=== PATIENT | male | born 1960 ===

== ENCOUNTER 2021-06-11 06:04 | Day surgery (SDC) | payer OTHER ==
[2021-06-06 10:19] LABS: Absolute Lymphocytes (CBC) 1.1 K/uL (0.7-4.9); Basophils % 0.6 % (0-1.3); Hematocrit 43.1 % (39.6-49.0); Lymphocytes % 29.4 % (15.3-44.8); MPV 7.8 fL (7.6-11.3); RBC Red Blood Cell Count 5.07 M/uL (4.33-5.43)
--- NOTE | 2021-06-06 10:27 | RAD REPORT ---
EXAM DESCRIPTION: RAD - Chest Pa And Lat (2 Views) - 06/06/2021 10:05 am CLINICAL HISTORY: preop, patient pending left shoulder surgery. COMPARISON: None TECHNIQUE: Frontal and lateral views of the chest were obtained. FINDINGS: The lungs are clear of an acute infiltrate. No failure or volume overload. In the lower le ft lung field a day rounded nodular density is present possibly nipple shadow. Likelihood of a signif icant lung parenchymal mass is felt to be low. No other mass or nodule identifiable. Trachea is midline. Heart size is normal and central vasculature is within normal limits. No pleur al effusion or pneumothorax seen. No acute bony finding noted. No aortic abnormality. IMPRESSION: No failure, infiltrate or emergent CT chest finding. Vague nodular density lower left lung field may be a nipple shadow. Long-term significance is doubtfu l. However, follow-up PA chest film with and without a nipple marker would be suggested. This could b e performed prior to or following the surgery.
[2021-06-06 11:00] LABS: Potassium 4.5 mmol/L (3.5-5.1)
[2021-06-11] MEDS ORDERED: CEFAZOLIN/SWI 1gm 1 GM/10 ML SYR ONE (06:44)
[2021-06-11] MEDS ORDERED: Ringers Lactate 1,000 ML IV ONE ×2 (06:44→09:09)
[2021-06-11] MEDS ORDERED: propofoL 200 MG/20 ML VIAL IV ONE (06:48)
[2021-06-11] MEDS ORDERED: MIDAZOLAM HCL 2 MG/2 ML INJ ONE (06:48)
[2021-06-11] MEDS ORDERED: FENTANYL CITR 100 MCG/2 ML ONE (06:48)
[2021-06-11] MEDS ORDERED: LIDOCAINE 2% MPF 5 ML VIAL ONE (06:48)
[2021-06-11] MEDS ORDERED: ROCURONIUM 50 MG/5 ML VIAL IV ONE (06:48)
[2021-06-11] MEDS ORDERED: ROPLVACAINE HCL 20 ML ONE (06:58)
[2021-06-11] MEDS ORDERED: dexAMETHasone 4 MG/ML VIAL ONE (06:58)
[2021-06-11] MEDS ORDERED: EPINEPHRINE/PF 1 MG/ML AMP ONE (07:29)
[2021-06-11] MEDS ORDERED: TRIAMCINOLONE ACETON 40 MG/ML VIAL ONE ×2 (08:07→08:09)
[2021-06-11] MEDS ORDERED: BUPIVACAINE 0.25% PF 30 ML VIAL ONE (08:07)
[2021-06-11] MEDS ORDERED: GLYCOPYRROLATE 0.2 MG/ML SYR ONE (08:30)
[2021-06-11] MEDS ORDERED: EPHEDRINE SULF 50 MG/ML VIAL ONE (08:38)
[2021-06-11] MEDS ORDERED: KETOROLAC 30 MG/ML INJ ONE (09:32)
--- NOTE | 2021-06-11 09:38 | P.BOP ---
Preoperative diagnosis: left shoulder adhesive capsulitis Postoperative diagnosis: same, left shoulder osteoarthritis Primary procedure: left shoulder manipulation under anesthesia Secondary procedure: left shoulder arthroscopic lysis of adhesions Blast Furnace Checker: NONE,NONE Estimated blood loss: 5 mm Specimen: none Findings: see dictation Anesthesia: General Complications: None Implants: none Fluids & blood products: per anesthesia record Transferred to: Recovery Room Condition: Good
[2021-06-11 09:49] VITALS: O2SAT 100
--- NOTE | 2021-06-11 10:36 | RAD REPORT ---
EXAM DESCRIPTION: RAD - Chest Single View - 06/11/2021 10:01 am CLINICAL HISTORY: s/p (L) shoulder arthroscopic lysis of adhesions Chest pain. COMPARISON: Chest Pa And Lat (2 Views) dated 06/06/2021 FINDINGS: Portable technique limits examination quality. The lungs are grossly clear. The heart is normal in size. No displaced fractures. IMPRESSION: No acute intrathoracic process suspected.
[2021-06-11 10:51] VITALS: BP 137/67; TEMP 97.1
--- NOTE | 2021-06-11 11:00 | RAD REPORT ---
EXAM DESCRIPTION: RAD - Shoulder 1 View - 06/11/2021 10:01 am CLINICAL HISTORY: s/p L shoulder arthroscopic lysis of adhesions COMPARISON: No comparisons FINDINGS: A single frontal projection was submitted. No bone or joint abnormality is detected. No un expected postsurgical finding.
--- NOTE | 2021-06-14 08:31 | OP ---
Date of Procedure: 06/11/2021 Surgeon: Giovanni Jennings MD Preoperative Diagnosis: Left shoulder adhesive capsulitis. Postoperative Diagnoses: 1.Left shoulder adhesive capsulitis. 2.Left shoulder glenohumeral arthritis. Procedures Performed: 1.Left shoulder manipulation under anesthesia. 2.Left shoulder arthroscopic lysis of adhesions. Anesthesia: General endotracheal. Fluids: Per Anesthesia record. Estimated Blood Loss: 5 cc. Complications: None. Implants: None. Indication For Procedure: Chaitanya is a 60-year-old male presented to my clinic with signs and symptoms consistent with adhesive capsulitis, who proceeded with conservative treatment measures including co rticosteroid injections and formal physical therapy. The patient failed conservative treatment measu res and has continued stiffness, pain, and loss of motion. I discussed with the patient at length ri sks and benefits associated with operative and nonoperative treatment. He expressed understanding an d elected to proceed with operative treatment. Description Of Procedure: After informed consent was obtained, the patient was identified in the pre operative holding area. The left upper extremity was marked. The patient was then brought back to [facility] PACU where he underwent an interscalene block to the left upper extremity. The patient was then b rought back to the operative room, transferred to the operative table in supine fashion, and placed u nder general endotracheal anesthesia. He was placed in a beach chair position with his extremities w ell padded. A time-out was initiated. Correct patient and procedure were confirmed and identified. The patient did receive his preoperative prophylactic antibiotics. Next, attention was taken to per forming the manipulation under anesthesia. The patient was then brought into forward flexion by ____ with one end and then forward flexion type fracture just proximal to the elbow. It minimized risk for fracture. Prior to the manipulation, the patient was able to have approximately 100 degrees of forward flexion and forward flexion was improved approximately 130 degrees. Left shou lder was then brought into abduction and protecting by stabilizing the scapula and then brought into rotation. The left upper extremity was then prepped and draped in usual sterile fashion. A time-out was initiated. The correct patient and procedure were confirmed and identified. The pat ient did receive preoperative prophylactic antibiotics. Posterior portal was created by doing a stab incision posteriorly, and the joint was then injected with 30 cc of normal saline capsule. Arthroscope was brought in posterior portal position. It was very difficult to get the a rthroscope into the glenohumeral joint between the glenoid and the humeral head. The scope was then brought to secure to the labrum. The joint was identified and was noted to be extremely tight. The patient was noted to have some significant chondromalacia humeral head posteriorly ___were noted to be intact. The shoulder was then gently manipulated and the arthroscope was able to be brought into the glenohumeral joint under direct visualization and anterior portal was created and cannula was placed. Subscapular was found to be intact as well as biceps tendon and was stable to probe, and using the radiofrequency ablator, the rotator interval was then debrided to hel p increase extra rotation. The arthroscopic shaver was also used. Next, the anterior cap roberto was then released along the anterior labrum. As this was being performed, the joint space was n oted to slowly expand, creating more room. The patient was noted to have significant chond romalacia noted on the inferior glenoid as well as humeral head. The shoulder was then again manipul ated. it was noted that the patient had within the shoulder. However, no ____ was noted. The arthroscope was then brought to the subacromial space, and a subacromial burse ctomy was performed. There was no significant rotator tear cuff noted on the bursal side. Arthrosco pic instruments were then removed without complications. The wounds were then irrigated thoroughly w ith normal saline, approximated using a 3-0 Vicryl, sterile dressings were placed. The patient was placed in the sling and will begi n physical therapy tomorrow. ANDRA/MODL Voice ID: [id number] Report ID: [id number]
== END 2021-06-11 12:12 | disposition home or self-care (01) ==
LOC: OR 06:04
PROVIDERS: ATTEND Orthopaedic Surgery Sports Medicine
PROC: 0RBK4ZZ Excision of Left Shoulder Joint, Percutaneous Endoscopic Approach (ICD-10-PCS; 2021-06-11)
PROC: 0MT Bursae and Ligaments, Resection (ICD-10-PCS; 2021-06-11)
PROC: 0RNK4ZZ Release Left Shoulder Joint, Percutaneous Endoscopic Approach (ICD-10-PCS; principal; 2021-06-11 07:30)
DX: M75.02 Adhesive capsulitis of left shoulder (principal); M25.512 Pain in left shoulder
CPT/HCPCS: 29825; 29822; 23929; 93005; 85025; 80048; 36415; 85610; 85730; 71045; 71046; 73020; J2704; J1100; J0171; J3301 ×2; J2250; J3010; J2795; J0690; J7120 ×2